=== PATIENT | female | born 1950 | race Caucasian/White ===

== ENCOUNTER 2021-01-21 16:22 | Emergency (ER) | payer OTHER ==
[~2021-01-21] VITALS: Ht 162.6 cm; Wt 102.1 kg
[2021-01-21] MEDS ORDERED: IBUP-1953 PO (16:36)
[2021-01-21] MEDS ORDERED: ASPI81TA31 PO (16:36)
[2021-01-21] MEDS ORDERED: OMEP20CA15 PO (16:36)
[2021-01-21] MEDS ORDERED: HYDR-3980 PO (17:49)
--- NOTE | 2021-01-21 19:08 | NUR ---
Recieved report from [facility]. Pt noted to be stable.
--- NOTE | 2021-01-21 19:26 | NUR ---
Patient discharged to home in stable condition. A/O x4, no SOB or labored breathing. Denies pain/discomfort. Written and verbal after care instructions given. Patient verbalizes understanding of instructions. Stressed follow up or return to ER for worsening s/s. Steady gait.
[2021-01-21 19:31] VITALS: BP 131/84
== END 2021-01-21 19:32 | disposition home or self-care (01) ==
LOC: ER 16:25
DX: G89.29 Other chronic pain (principal); S89.92XS Unspecified injury of left lower leg, sequela; X58.XXXS Exposure to other specified factors, sequela; J45.909 Unspecified asthma, uncomplicated; K21.9 Gastro-esophageal reflux disease without esophagitis; Z98.84 Bariatric surgery status; Z79.82 Long term (current) use of aspirin; Z79.899 Other long term (current) drug therapy
CPT/HCPCS: A4663